=== PATIENT | female | born 1990 | race Caucasian/White ===

== ENCOUNTER 2016-12-07 11:22 | Emergency (ER) | payer OTHER ==
[2016-12-07 11:46] VITALS: RESP 16
[2016-12-07] MEDS ORDERED: SODIUM CHLORIDE 0.9% 1,000 ML IV STA (12:17)
[2016-12-07] MEDS ORDERED: diphenhydrAMINE 50 MG/ML 1 ML VIAL IVP STA (12:17)
[2016-12-07] MEDS ORDERED: METOCLOPRAMIDE 5 MG/ML 2 ML VIAL IVP STA (12:17)
[2016-12-07] MEDS ORDERED: ACETAMINOPHEN IV (For NPO) 1,000 MG in EMPTY BAG 1 BAG IVPB STA (12:26)
[2016-12-07] MEDS ORDERED: KETOROLAC 30 MG/ML 1 ML VIAL IVP STA (12:26)
--- NOTE | 2016-12-07 12:46 | ED ---
General Adult HPI - General Chief complaint: Headache Stated complaint: headache Time Seen by Provider: 12/07/16 11:46 Source: patient, RN notes reviewed, old records reviewed Mode of arrival: ambulatory Limitations: no limitations - History of Present Illness Initial comments: This is a 26-year-old female ER for evaluation of headache. Patient has no history of migraine no head trauma no history of headaches. No diagnosis of headaches, patient has had on and off headache for about 7 days. No nausea vomiting, headache is throbbing in nature left-sided worse with side are sound. No modifying factors, Motrin and Tylenol not helping. Again no fevers, no trauma, no neurological complaints - Related Data Home Medications Medication Instructions Recorded Confirmed Acetaminophen Tab [Tylenol Tab] 1,000 mg PO Q6HR PRN 12/07/16 12/07/16 Aspirin/Acetaminophen/Caffeine 2 tab PO Q24H PRN 12/07/16 12/07/16 [Excedrin Migraine Caplet] Ibuprofen [Motrin] 400 mg PO Q6HR PRN 12/07/16 12/07/16 Previous Rx's Medication Instructions Recorded Ciprofloxacin HCl [Cipro] 500 mg PO Q12HR #10 tablet 12/07/16 Allergies Allergy/AdvReac Type Severity Reaction Status Date / Time azithromycin [From Zithromax] Allergy Unknown Verified 12/07/16 11:46 Sulfa (Sulfonamide Allergy Unknown Verified 12/07/16 11:46 Antibiotics) nitrofurantoin AdvReac Nausea Verified 12/07/16 11:46 [From Macrobid] nitrofurantoin AdvReac Nausea Verified 12/07/16 11:46 macrocrystalline [From Macrobid] Review of Systems ROS Statement: Those systems with pertinent positive or pertinent negative responses have been documented in the HPI. ROS Other: All systems not noted in ROS Statement are negative. Past Medical History Past Medical History: No Reported History History of Any Multi-Drug Resistant Organisms: MRSA Date of last positivie culture/infection: 04/18/11 MDRO Source:: Unknown Past Surgical History: No Surgical Hx Reported Additional Past Surgical History / Comment(s): laprascopy Past Anesthesia/Blood Transfusion Reactions: No Reported Reaction Additional Past Anesthesia/Blood Transfusion Reaction / Comment(s): NO BLOOD TRANSFUSIONS IN PAST Past Psychological History: No Psychological Hx Reported Smoking Status: Current every day smoker Past Alcohol Use History: None Reported Past Drug Use History: None Reported - Past Family History Father Family Medical History: No Reported History Mother Family Medical History: No Reported History Additional Family Medical History / Comment(s): dad no history General Exam Limitations: no limitations General appearance: alert, in no apparent distress Head exam: Present: atraumatic, normocephalic, normal inspection Eye exam: Present: normal appearance, PERRL, EOMI. Absent: scleral icterus, conjunctival injection, periorbital swelling ENT exam: Present: normal exam, mucous membranes moist Neck exam: Present: normal inspection. Absent: tenderness, meningismus, lymphadenopathy Respiratory exam: Present: normal lung sounds bilaterally. Absent: respiratory distress, wheezes, rales, rhonchi, stridor Cardiovascular Exam: Present: regular rate, normal rhythm, normal heart sounds. Absent: systolic murmur, diastolic murmur, rubs, gallop, clicks GI/Abdominal exam: Present: soft, normal bowel sounds. Absent: distended, tenderness, guarding, rebound, rigid Extremities exam: Present: normal inspection, full ROM, normal capillary refill. Absent: tenderness, pedal edema, joint swelling, calf tenderness Back exam: Present: normal inspection Neurological exam: Present: alert, oriented X3, CN II-XII intact Psychiatric exam: Present: normal affect, normal mood Skin exam: Present: warm, dry, intact, normal color. Absent: rash Course Vital Signs 12/07/16 11:43 Temperature 98.3 F Pulse Rate 90 Respiratory 16 Rate Blood Pressure 125/64 O2 Sat by Pulse 100 Oximetry - Reevaluation(s) Reevaluation #1: 12/07/16 13:31 At this time patient's headache is resolved coming from positive urinary tract infection, okay for discharge to Medical Decision Making - Medical Decision Making Twentysomething out of the ER for evaluation of headache, migrainous headache in nature, patient headache is treated here in the emergency room and resolved, CT is negative, lab work is normal aside from urinary tract infection, will treat infection and patient can be discharged home - Lab Data Result diagrams: 12/07/16 12:47 Lab Results 12/07/16 12/07/16 12/07/16 Range/Units 12:47 12:47 12:47 WBC 9.3 (3.8-10.6) k/uL RBC 4.81 (3.80-5.40) m/uL Hgb 15.4 (11.4-16.0) gm/dL Hct 45.9 (34.0-46.0) % MCV 95.4 (80.0-100.0) fL MCH 32.0 (25.0-35.0) pg MCHC 33.5 (31.0-37.0) g/dL RDW 12.6 (11.5-15.5) % Plt Count 323 (150-450) k/uL Neutrophils % 64 % Lymphocytes % 27 % Monocytes % 4 % Eosinophils % 3 % Basophils % 1 % Neutrophils # 5.9 (1.3-7.7) k/uL Lymphocytes # 2.5 (1.0-4.8) k/uL Monocytes # 0.3 (0-1.0) k/uL Eosinophils # 0.3 (0-0.7) k/uL Basophils # 0.1 (0-0.2) k/uL Urine Color Yellow Urine Appearance Cloudy H (Clear) Urine pH 6.0 (5.0-8.0) Ur Specific [place] 1.015 (1.001-1.035) Urine Protein Trace H (Negative) Urine Glucose (UA) Negative (Negative) Urine Ketones Negative (Negative) Urine Blood Trace H (Negative) Urine Nitrite Negative (Negative) Urine Bilirubin Negative (Negative) Urine Urobilinogen <2.0 (<2.0) mg/dL Ur Leukocyte Esterase Moderate H (Negative) Urine RBC 2 (0-5) /hpf Urine WBC 62 H (0-5) /hpf Ur Squamous Epith Cells 1 (0-4) /hpf Urine Bacteria Rare H (None) /hpf Urine Mucus Occasional H (None) /hpf Urine HCG, Qual Not Detected (Not Detectd) - Radiology Data Radiology results: report reviewed (CT brain is negative for acute disease), image reviewed Disposition Clinical Impression: Migraine, UTI (urinary tract infection) Disposition: HOME SELF-CARE Condition: Good Instructions: Acute Headache (ED), Urinary Tract Infection in Women (ED) Prescriptions: Ciprofloxacin HCl [Cipro] 500 mg PO Q12HR #10 tablet Referrals: Lisha Tejeda MD [Primary Care Provider] - 1-2 days
[2016-12-07 13:01] LABS: Basophils # (A) 0.1 k/uL (0-0.2); Basophils % (A) 1 %; CH 31.7; CHCM 33.3; Eosinophils # (A) 0.3 k/uL (0-0.7); Eosinophils % (A) 3 %; HCT 45.9 % (34.0-46.0); HDW 2.31; HGB 15.4 gm/dL (11.4-16.0); Luc # (Auto) 0.16; Luc % (Auto) 2; Lymphocytes # (A) 2.5 k/uL (1.0-4.8); Lymphocytes % (A) 27 %; MCHC 33.5 g/dL (31.0-37.0); MCV 95.4 fL (80.0-100.0); Mean Platelet Volume 7.6; Monocytes # (A) 0.3 k/uL (0-1.0); Monocytes % (A) 4 %; Neutrophils # (A) 5.9 k/uL (1.3-7.7); Neutrophils % (A) 64 %; RBC 4.81 m/uL (3.80-5.40); RDW 12.6 % (11.5-15.5); WBC 9.3 k/uL (3.8-10.6); WBC (Perox) 9.37
[2016-12-07 13:06] LABS: Appearance,Urine Cloudy (Clear); Bacteria,Urine Rare /hpf; Bilirubin,Urine Negative (Negative); Glucose,Urine (UA) Negative (Negative); Ketones,Urine Negative (Negative); Leukocyte Esterase,Urine Moderate (Negative); Mucus,Urine Occasional /hpf; Nitrite,Urine Negative (Negative); Particle Count 4357; Protein,Urine Trace (Negative); RBC,Urine 2 /hpf (0-5); Specific Gravity,Urine 1.015 (1.001-1.035); Squamous Epithelial Cell,Urine 1 /hpf (0-4); UA Billing (MACRO vs. MICRO) MICRO; Urobilinogen,Urine <2.0 mg/dL (<2.0); WBC,Urine 62 /hpf (0-5)
[2016-12-07 13:16] LABS: Chloride 108 mmol/L (98-107); Glucose 105 mg/dL (74-99); Potassium 4.1 mmol/L (3.5-5.1); Total Protein 8.2 g/dL (6.3-8.2)
[2016-12-07 13:17] LABS: ALT 28 U/L (9-52); AST 20 U/L (14-36); Alkaline Phosphatase 65 U/L (38-126); Anion Gap 13 mmol/L; Blood Urea Nitrogen 8 mg/dL (7-17); Calcium 9.8 mg/dL (8.4-10.2); Carbon Dioxide 23 mmol/L (22-30); Magnesium 2.1 mg/dL (1.6-2.3); Non-African American GFR(MDRD) >60 (>60 ml/min/1.73 sqM); Phosphorous 3.8 mg/dL (2.5-4.5); Sodium 144 mmol/L (137-145); Total Bilirubin 0.7 mg/dL (0.2-1.3)
[2016-12-07] MEDS ORDERED: CIPROFLOXACIN HCL 500 MG TAB PO STA (13:30)
--- NOTE | 2016-12-07 13:45 | CT ---
EXAMINATION TYPE: CT brain wo con DATE OF EXAM: 12/07/2016 1:37 PM COMPARISON: NONE HISTORY: 26-year-old female with headaches for 3 weeks TECHNIQUE: Examination was done in axial plane without intravenous contrast. Coronal and sagittal r econstructions performed. CT DLP: 1058 mGycm Automated exposure control for dose reduction was used. FINDINGS: There is no evidence of acute intracranial hemorrhage, acute ischemic changes, mass, mass-effect, or extra-axial fluid collection. There is no effacement of cerebral sulci or basal subarachnoid cister ns. There is no hydrocephalus. There is no midline shift. Berman-white matter distinction is preserv ed. Rightward nasal septal deviation. Paranasal sinuses and mastoid air cells are well pneumatized. Orbit s and globes are intact. IMPRESSION: No acute intracranial abnormality seen.
[2016-12-07 13:53] VITALS: BP 106/69; PULSE 72; TEMP 98.8
== END 2016-12-07 14:00 | disposition home or self-care (01) ==
LOC: EC 11:22
DX: G43.909 Migraine, unspecified, not intractable, without status migrainosus (principal); N39.0 Urinary tract infection, site not specified; F17.200 Nicotine dependence, unspecified, uncomplicated; Z88.0 Allergy status to penicillin; Z88.2 Allergy status to sulfonamides; Z88.8 Allergy status to other drugs, medicaments and biological substances
CPT/HCPCS: 36415; 80053; 83735; 84100; 85025; 81001; 81025; 87086; 87077; 87186; 70450; 99284; 96365; 96375 ×4; J1200; J2765; J2930; J1885; J0131

== ENCOUNTER 2016-12-10 14:58 | Emergency (ER) | payer OTHER ==
[2016-12-10] MEDS ORDERED: PROMETHAZINE INJ 25 MG in SODIUM CHLORIDE 0.9% 50 ML IVPB STA (15:15)
[2016-12-10] MEDS ORDERED: diphenhydrAMINE 50 MG/ML 1 ML VIAL IVP STA (15:15)
[2016-12-10] MEDS ORDERED: KETOROLAC 30 MG/ML 1 ML VIAL IVP STA (15:15)
[2016-12-10] MEDS ORDERED: SODIUM CHLORIDE 0.9% 1,000 ML IV ONE (15:15)
[2016-12-10] MEDS ORDERED: DIAZEPAM 5 MG/ML 2 ML SYRINGE IVP STA (15:26)
--- NOTE | 2016-12-10 15:31 | ED ---
General Adult HPI - General Chief complaint: Headache Stated complaint: migraine Time Seen by Provider: 12/10/16 15:12 Source: patient, family, RN notes reviewed, old records reviewed Mode of arrival: ambulatory Limitations: no limitations - History of Present Illness Initial comments: 26-year-old female presenting for headache. Patient states that she has had headache intermittently for the past month. She states she was treated in the this previous Tuesday for similar symptoms. She states she had a workup at that time which was unremarkable and her headache was feeling improved at that time. She states that since Tuesday she has had persistence of her headache intermittently but worse today again. She states she has been taking Aleve and Excedrin and Benadryl with mild improvement of her headache. She states that she now feels some tension in her left neck muscles as well. She denies any fevers or chills. She denies any visual changes or neurological deficits. She denies any significant medical history. He denies syncope. - Related Data Home Medications Medication Instructions Recorded Confirmed Acetaminophen Tab [Tylenol Tab] 1,000 mg PO Q6HR PRN 12/07/16 12/10/16 Aspirin/Acetaminophen/Caffeine 2 tab PO Q24H PRN 12/07/16 12/10/16 [Excedrin Migraine Caplet] Ibuprofen [Motrin] 400 mg PO Q6HR PRN 12/07/16 12/10/16 Medroxyprogesterone Acetate 150 mg IM Q84D 12/10/16 12/10/16 [Depo-Provera] Previous Rx's Medication Instructions Recorded Ciprofloxacin HCl [Cipro] 500 mg PO Q12HR #10 tablet 12/07/16 Diazepam [Valium] 5 mg PO BID PRN #8 tab 12/10/16 Allergies Allergy/AdvReac Type Severity Reaction Status Date / Time azithromycin [From Zithromax] Allergy Unknown Verified 12/10/16 15:52 Sulfa (Sulfonamide Allergy Unknown Verified 12/10/16 15:52 Antibiotics) nitrofurantoin AdvReac Nausea Verified 12/10/16 15:52 [From Macrobid] nitrofurantoin AdvReac Nausea Verified 12/10/16 15:52 macrocrystalline [From Macrobid] Review of Systems ROS Statement: Those systems with pertinent positive or pertinent negative responses have been documented in the HPI. ROS Other: All systems not noted in ROS Statement are negative. Past Medical History Past Medical History: No Reported History History of Any Multi-Drug Resistant Organisms: MRSA Date of last positivie culture/infection: 04/18/11 MDRO Source:: Unknown Past Surgical History: No Surgical Hx Reported Additional Past Surgical History / Comment(s): laprascopy Past Anesthesia/Blood Transfusion Reactions: No Reported Reaction Additional Past Anesthesia/Blood Transfusion Reaction / Comment(s): NO BLOOD TRANSFUSIONS IN PAST Past Psychological History: No Psychological Hx Reported Smoking Status: Current every day smoker Past Alcohol Use History: None Reported Past Drug Use History: None Reported - Past Family History Father Family Medical History: No Reported History Mother Family Medical History: No Reported History Additional Family Medical History / Comment(s): dad no history General Exam - General Exam Comments Initial Comments: General: Awake and Alert. No acute distress. Does not appear acutely ill. Eyes: BETI, EOM intact. No nystagmus. No scleral icterus. HENT: Atraumatic, normocephalic. Mucous membranes moist. Trachea midline. Neck: The neck is supple, there is no JVD. Mild tenderness and spams of left trapezius. No torticollis. Cardiovascular: Regular rate and rhythm. No murmur, rub, or gallop is appreciated. Distal pulses intact. Respiratory: Lungs are clear to auscultation bilaterally. No wheezes, rales, rhonchi. No respiratory distress. Gastrointestinal: Soft, Nontender. No rebound or guarding. Non-distended. No masses or organomegaly noted. No CVA tenderness. Musculoskeletal: No tenderness. Normal ROM. No gross deformity. No strength deficits. Neurological: A&Ox3. CN II-XII grossly intact, There are no obvious motor or sensory deficits. Coordination appears grossly intact. Speech is normal. Normal gait. Skin: Skin is warm and dry and no rashes or lesions are noted. Psychiatric: Cooperative, appropriate mood & affect, normal judgment. Limitations: no limitations Course Vital Signs 12/10/16 15:00 Temperature 98.2 F Pulse Rate 74 Respiratory 17 Rate Blood Pressure 134/69 O2 Sat by Pulse 100 Oximetry Medical Decision Making - Medical Decision Making 26-year-old female presenting for intermittent headache for the past month. He is recently seen in the for similar symptoms and treated and felt improved at that time. On exam today she has no neurological deficits and a normal gait. She denies any significant medical history. Her headache appears consistent with migraine versus tension headache. There is low suspicion of meningitis or other severe intracranial process at this time. No visual changes or eye pain concerning for intracranial hypertension. Per review of her recent EC visit she had lab work and CT imaging which were unremarkable. She was noted to have a UTI that time and has been on Cipro. Repeat basic lab work was performed without evidence of leukocytosis, BMP stable. UA shows resolution of UTI. is negative. Patient given medications for headache and states significant improvement on reevaluation. Rx for Valium and discussed using Aleve and/or Benadryl as needed for headache. She states she does have scheduled follow up with her doctor next Tuesday. Discussed keeping this appointment and discussing possible referral to neurology if her headaches persist. Discussed concerning signs symptoms for immediate return to the ED. Patient is agreeable with plan and discharge home. - Lab Data Result diagrams: 12/10/16 15:05 12/10/16 15:05 Lab Results 12/10/16 12/10/16 12/10/16 Range/Units 15:05 15:05 15:05 WBC 10.4 (3.8-10.6) k/uL RBC 3.98 (3.80-5.40) m/uL Hgb 12.7 (11.4-16.0) gm/dL Hct 37.7 (34.0-46.0) % MCV 94.7 (80.0-100.0) fL MCH 32.1 (25.0-35.0) pg MCHC 33.9 (31.0-37.0) g/dL RDW 12.8 (11.5-15.5) % Plt Count 280 (150-450) k/uL Neutrophils % 56 % Lymphocytes % 34 % Monocytes % 4 % Eosinophils % 4 % Basophils % 1 % Neutrophils # 5.8 (1.3-7.7) k/uL Lymphocytes # 3.5 (1.0-4.8) k/uL Monocytes # 0.4 (0-1.0) k/uL Eosinophils # 0.4 (0-0.7) k/uL Basophils # 0.1 (0-0.2) k/uL Sodium 143 (137-145) mmol/L Potassium 4.2 (3.5-5.1) mmol/L Chloride 109 H (98-107) mmol/L Carbon Dioxide 21 L (22-30) mmol/L Anion Gap 13 mmol/L BUN 11 (7-17) mg/dL Creatinine 0.64 (0.52-1.04) mg/dL Est GFR (MDRD) Af Amer >60 (>60 ml/min/1.73 sqM) Est GFR (MDRD) Non-Af >60 (>60 ml/min/1.73 sqM) Glucose 86 (74-99) mg/dL Calcium 9.3 (8.4-10.2) mg/dL Urine Color Urine Appearance (Clear) Urine pH (5.0-8.0) Ur Specific [place] (1.001-1.035) Urine Protein (Negative) Urine Glucose (UA) (Negative) Urine Ketones (Negative) Urine Blood (Negative) Urine Nitrite (Negative) Urine Bilirubin (Negative) Urine Urobilinogen (<2.0) mg/dL Ur Leukocyte Esterase (Negative) Urine WBC (0-5) /hpf Ur Squamous Epith Cells (0-4) /hpf Urine HCG, Qual Not Detected (Not Detectd) 12/10/16 Range/Units 15:05 WBC (3.8-10.6) k/uL RBC (3.80-5.40) m/uL Hgb (11.4-16.0) gm/dL Hct (34.0-46.0) % MCV (80.0-100.0) fL MCH (25.0-35.0) pg MCHC (31.0-37.0) g/dL RDW (11.5-15.5) % Plt Count (150-450) k/uL Neutrophils % % Lymphocytes % % Monocytes % % Eosinophils % % Basophils % % Neutrophils # (1.3-7.7) k/uL Lymphocytes # (1.0-4.8) k/uL Monocytes # (0-1.0) k/uL Eosinophils # (0-0.7) k/uL Basophils # (0-0.2) k/uL Sodium (137-145) mmol/L Potassium (3.5-5.1) mmol/L Chloride (98-107) mmol/L Carbon Dioxide (22-30) mmol/L Anion Gap mmol/L BUN (7-17) mg/dL Creatinine (0.52-1.04) mg/dL Est GFR (MDRD) Af Amer (>60 ml/min/1.73 sqM) Est GFR (MDRD) Non-Af (>60 ml/min/1.73 sqM) Glucose (74-99) mg/dL Calcium (8.4-10.2) mg/dL Urine Color Colorless Urine Appearance Clear (Clear) Urine pH 7.0 (5.0-8.0) Ur Specific [place] 1.003 (1.001-1.035) Urine Protein Negative (Negative) Urine Glucose (UA) Negative (Negative) Urine Ketones Negative (Negative) Urine Blood Moderate H (Negative) Urine Nitrite Negative (Negative) Urine Bilirubin Negative (Negative) Urine Urobilinogen <2.0 (<2.0) mg/dL Ur Leukocyte Esterase Negative (Negative) Urine WBC 1 (0-5) /hpf Ur Squamous Epith Cells <1 (0-4) /hpf Urine HCG, Qual (Not Detectd) - Radiology Data Radiology results: report reviewed Disposition Clinical Impression: Nonintractable headache Disposition: HOME SELF-CARE Condition: Stable Instructions: Acute Headache (ED) Additional Instructions: Please take Aleve and or Benadryl with Valium for headache as discussed. Please follow up with your regular doctor for reevaluation next Tuesday. You may also ask for a referral to a Neurologist if headaches are persisting. Prescriptions: Diazepam [Valium] 5 mg PO BID PRN #8 tab PRN Reason: neck spasm/headache Referrals: Lisha Tejeda MD [Primary Care Provider] - 1-2 days Time of Disposition: 17:07
[2016-12-10 15:53] LABS: Basophils # (A) 0.1 k/uL (0-0.2); Basophils % (A) 1 %; CH 31.7; CHCM 33.7; Eosinophils # (A) 0.4 k/uL (0-0.7); Eosinophils % (A) 4 %; HCT 37.7 % (34.0-46.0); HGB 12.7 gm/dL (11.4-16.0); Luc # (Auto) 0.17; Luc % (Auto) 2; Lymphocytes # (A) 3.5 k/uL (1.0-4.8); Lymphocytes % (A) 34 %; MCH 32.1 pg (25.0-35.0); MCHC 33.9 g/dL (31.0-37.0); MCV 94.7 fL (80.0-100.0); Mean Platelet Volume 7.5; Monocytes # (A) 0.4 k/uL (0-1.0); Monocytes % (A) 4 %; Neutrophils # (A) 5.8 k/uL (1.3-7.7); Neutrophils % (A) 56 %; RBC 3.98 m/uL (3.80-5.40); RDW 12.8 % (11.5-15.5); WBC 10.4 k/uL (3.8-10.6); WBC (Perox) 10.52
[2016-12-10 16:00] LABS: Anion Gap 13 mmol/L; Appearance,Urine Clear (Clear); Bilirubin,Urine Negative (Negative); Blood Urea Nitrogen 11 mg/dL (7-17); Calcium 9.3 mg/dL (8.4-10.2); Carbon Dioxide 21 mmol/L (22-30); Chloride 109 mmol/L (98-107); Glucose 86 mg/dL (74-99); Glucose,Urine (UA) Negative (Negative); Ketones,Urine Negative (Negative); Leukocyte Esterase,Urine Negative (Negative); Nitrite,Urine Negative (Negative); Non-African American GFR(MDRD) >60 (>60 ml/min/1.73 sqM); Particle Count 390; Potassium 4.2 mmol/L (3.5-5.1); Protein,Urine Negative (Negative); Sodium 143 mmol/L (137-145); Specific Gravity,Urine 1.003 (1.001-1.035); Squamous Epithelial Cell,Urine <1 /hpf (0-4); UA Billing (MACRO vs. MICRO) MICRO; Urobilinogen,Urine <2.0 mg/dL (<2.0); WBC,Urine 1 /hpf (0-5)
[2016-12-10 17:15] VITALS: BP 122/67; PULSE 69; RESP 16; TEMP 98
== END 2016-12-10 17:15 | disposition home or self-care (01) ==
LOC: EC 14:58
DX: R51 Headache (principal); F17.200 Nicotine dependence, unspecified, uncomplicated; Z32.02 Encounter for pregnancy test, result negative; Z86.14 Personal history of Methicillin resistant Staphylococcus aureus infection; Z88.2 Allergy status to sulfonamides; Z88.1 Allergy status to other antibiotic agents; Z79.1 Long term (current) use of non-steroidal anti-inflammatories (NSAID); Z79.899 Other long term (current) drug therapy
CPT/HCPCS: 99284 ×2; 96374 ×2; 96375 ×3; 96361 ×2; 36415; 80048; 85025; 81001; 81025; J1200; J3360; J1885

== ENCOUNTER → 2017-01-05 | Outpatient (CLI) | payer OTHER ==
--- NOTE | 2017-01-05 19:42 | MR ---
EXAMINATION TYPE: MR brain/cspine wo DATE OF EXAM: 01/05/2017 6:04 PM COMPARISON: NONE HISTORY: left side neck pain with headaches Multiplanar MultiSpin echo imaging of the cervical spine was performed. Comparison: none C2-C3: No evidence for degenerative disc disease. No disc bulge/herniation or protrusion. No Canal stenosis. Foramina are patent bilaterally. C3-C4: No evidence for degenerative disc disease. No disc bulge/herniation or protrusion. No Canal stenosis. Foramina are patent bilaterally. C4-C5: No evidence for degenerative disc disease. No disc bulge/herniation or protrusion. No Canal stenosis. Foramina are patent bilaterally. C5-C6: No evidence for degenerative disc disease. Minimal posterior disc bulge without herniation or protrusion. No Canal stenosis. Foramina are patent bilaterally. C6-C7: No evidence for degenerative disc disease. Minimal posterior disc bulge without herniation or protrusion. No Canal stenosis. Foramina are patent bilaterally. C7-T1: No evidence for degenerative disc disease. No disc bulge/herniation or protrusion. No Canal stenosis. Foramina are patent bilaterally. Cervical segments are intact. There is normal alignment. Cervical spinal cord is of normal signal. Craniovertebral junction relationships are within normal limits. IMPRESSION: 1. L5 6 and L6 7 disc bulge. Otherwise unremarkable study. EXAMINATION TYPE: MR brain/cspine wo DATE OF EXAM: 01/05/2017 6:04 PM COMPARISON: NONE HISTORY: left side neck pain with headaches Multiplanar and multispin-echo imaging of the brain was performed . The ventricles, basal cisterns and sulci overlying the cerebral convexities are within normal limits. There is no evidence for midline shift or mass effect. Acute intracranial hemorrhage or extra-axial collection is not evident. The brain parenchyma reveals no abnormal increased signal. No acute edema is identified. There is fluid within the right petrous apex. There is also fluid within the right-sided mastoid air cells which may reflect chronic mastoiditis. Left-sided mastoid air cells are well-aerated. Small muc ous retention cyst or polyp right maxillary sinus. IMPRESSION: 1. Suspect chronic right-sided mastoiditis. 2. I cannot exclude petrous apicitis.
--- NOTE | 2017-01-06 09:46 | ECHOF ---
Referral Reason:R51 Headaches,M62.838spasm, R01.1 Cardiac murmMER SYST MEASUREMENTS -------- HEIGHT: 165.1 cm WEIGHT: 55.3 kg BP: IVSd: 0.5 cm (0.6 - 1.1) LVIDd: 4.4 cm (3.9 - 5.3) LVPWd: 0.7 cm (0.6 - 1.1) IVSs: 1.0 cm LVIDs: 2.5 cm LVPWs: 1.6 cm Ao Diam: 2.2 cm (2.0 - 3.7) AV Cusp: 1.6 cm (1.5 - 2.6) LA Diam: 2.4 cm (2.7 - 3.8) MV EXCURSION: 12.755 mm (> 18.000) MV EF SLOPE: 117 mm/s (70 - 150) EPSS: 0.7 cm MV E Garo: 1.35 m/s MV DecT: 210 ms MV A Garo: 0.41 m/s MV E/A Ratio: 3.32 RAP: 5.00 mmHg RVSP: 13.43 mmHg FINDINGS -------- Sinus rhythm. This was a technically good study. Left ventricular wall thickness is normal. Overall left ventricular systolic function is normal with, an EF between 55 - 60 %. The right ventricle is normal in size and function. The left atrium is normal in size. The right atrium is normal in size. The aortic valve is trileaflet, and appears structurally normal. No aortic stenosis or regurgitation. Mild mitral regurgitation is present. Mild tricuspid regurgitation present. Pulmonic valve appears structurally normal. The aortic root size is normal. The pericardium is normal. CONCLUSIONS -------- 1. Sinus rhythm. 2. Mild tricuspid regurgitation present. 3. Pulmonic valve appears structurally normal. 4. The aortic root size is normal. 5. The pericardium is normal. 6. This was a technically good study. 7. Left ventricular wall thickness is normal. 8. Overall left ventricular systolic function is normal with, an EF between 55 - 60 %. 9. The right ventricle is normal in size and function. 10. The left atrium is normal in size. 11. The right atrium is normal in size. 12. The aortic valve is trileaflet, and appears structurally normal. No aortic stenosis or regurgitation. 13. Mild mitral regurgitation is present. CUSTOMER CONTACT REPRESENTATIVE: Edwin Richmond RDCS
== END | disposition home or self-care (01) ==
LOC: RADECHMAIN 14:47
PROVIDERS: ATTEND Nurse Practitioner Family
DX: I08.1 Rheumatic disorders of both mitral and tricuspid valves (principal); M50.222 Other cervical disc displacement at C5-C6 level; R51 Headache
CPT/HCPCS: 70551; 72141; 93306

== ENCOUNTER 2017-01-11 00:01 | Emergency (ER) | payer OTHER ==
[2017-01-11 00:14] VITALS: TEMP 97.9
[2017-01-11] MEDS ORDERED: SODIUM CHLORIDE 0.9% 1,000 ML IV ONE (00:47)
[2017-01-11] MEDS ORDERED: DIAZEPAM 5 MG/ML 2 ML SYRINGE IVP STA (00:48)
[2017-01-11] MEDS ORDERED: KETOROLAC 30 MG/ML 1 ML VIAL IVP STA (00:48)
[2017-01-11] MEDS ORDERED: diphenhydrAMINE 50 MG/ML 1 ML VIAL IVP STA (00:48)
--- NOTE | 2017-01-11 00:50 | ED ---
Headache HPI - General Chief Complaint: Headache Stated Complaint: Migraine Time Seen by Provider: 01/11/17 00:27 Source: RN notes reviewed Mode of arrival: ambulatory Limitations: no limitations - History of Present Illness Initial Comments: Patient's 26-year-old female presents to the emergency room for evaluation of headache. Patient states she has a history of migraine headaches. Patient states she has been having migraine headaches for the past month and a half. Patient states pain is mostly on the left side of her face and head. Patient states she did have an MRI on 01/05/17 and was told today that she has rmastoiditis. Patient states she was prescribed Fioricet. Patient states she took the Fioricet twice today with no relief of symptoms. Patient states this migraine has lasted her 24 hours. Patient states she is having 7 out of 10 constant headache on the left side of her face. Patient denies ringing in ears. Patient states she is nauseous but denies vomiting. Patient denies dizziness. Patient denies changes in vision. Patient does admit to photophobia and phonophobia. Patient denies neck pain. Patient denies fevers or chills. Patient denies numbness or tingling in her fingers and toes. Patient denies any extremity weakness. - Related Data Home Medications Medication Instructions Recorded Confirmed Acetaminophen Tab [Tylenol Tab] 1,000 mg PO Q6HR PRN 12/07/16 01/11/17 Aspirin/Acetaminophen/Caffeine 2 tab PO Q24H PRN 12/07/16 01/11/17 [Excedrin Migraine Caplet] Ibuprofen [Motrin] 400 mg PO Q6HR PRN 12/07/16 01/11/17 Medroxyprogesterone Acetate 150 mg IM Q84D 12/10/16 01/11/17 [Depo-Provera] Albuterol Nebulized [Ventolin 2.5 mg INHALATION Q4H PRN 01/11/17 01/11/17 Nebulized] Butalb/APAP/Caff 50-325-40Mg 1 tab PO Q4H PRN 01/11/17 01/11/17 [Fioricet 50-325-40] Previous Rx's Medication Instructions Recorded Diazepam [Valium] 5 mg PO BID PRN #8 tab 12/10/16 Allergies Allergy/AdvReac Type Severity Reaction Status Date / Time azithromycin [From Zithromax] Allergy Unknown Verified 01/11/17 00:14 Sulfa (Sulfonamide Allergy Unknown Verified 01/11/17 00:14 Antibiotics) nitrofurantoin AdvReac Nausea Verified 01/11/17 00:14 [From Macrobid] nitrofurantoin AdvReac Nausea Verified 01/11/17 00:14 macrocrystalline [From Macrobid] Review of Systems ROS Statement: Those systems with pertinent positive or pertinent negative responses have been documented in the HPI. ROS Other: All systems not noted in ROS Statement are negative. Past Medical History Past Medical History: No Reported History Additional Past Medical History / Comment(s): migranes, heart murmur History of Any Multi-Drug Resistant Organisms: MRSA Date of last positivie culture/infection: 04/18/11 MDRO Source:: left buttock Past Surgical History: No Surgical Hx Reported Additional Past Surgical History / Comment(s): abdomin laprascopy Past Anesthesia/Blood Transfusion Reactions: No Reported Reaction Additional Past Anesthesia/Blood Transfusion Reaction / Comment(s): NO BLOOD TRANSFUSIONS IN PAST Past Psychological History: No Psychological Hx Reported Smoking Status: Current every day smoker Past Alcohol Use History: Occasional Past Drug Use History: None Reported - Past Family History Father Family Medical History: No Reported History Mother Family Medical History: No Reported History Additional Family Medical History / Comment(s): dad no history General Exam - General Exam Comments Initial Comments: Sitting in exam room, no distress. Limitations: no limitations General appearance: alert, in no apparent distress Head exam: Present: atraumatic, normocephalic, normal inspection Eye exam: Present: normal appearance, PERRL, EOMI Pupils: Present: normal accommodation ENT exam: Present: normal exam, normal oropharynx, TM's normal bilaterally, normal external ear exam Neck exam: Present: normal inspection, full ROM. Absent: tenderness, lymphadenopathy Respiratory exam: Present: normal lung sounds bilaterally. Absent: respiratory distress Cardiovascular Exam: Present: regular rate, normal rhythm, normal heart sounds Extremities exam: Present: normal inspection Back exam: Present: normal inspection Neurological exam: Present: alert, oriented X3, CN II-XII intact, normal gait Expanded Cranial nerves: EOM's Intact: Normal, Facial Sensation: Normal Sensory exam: Upper Extremity Light Touch: Normal, Lower Extremity Light Touch: Normal Motor strength exam: RUE: 5, LUE: 5, RLE: 5, LLE: 5 Psychiatric exam: Present: normal affect, normal mood Skin exam: Present: warm, dry, intact, normal color. Absent: rash Course Vital Signs 01/11/17 00:08 Temperature 97.9 F Pulse Rate 93 Respiratory 16 Rate Blood Pressure 123/78 O2 Sat by Pulse 100 Oximetry Medical Decision Making - Medical Decision Making Patient is a 26-year-old female presents to the emergency room for evaluation of migraine headache. Patient states her headache has completely resolved with medications given. 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 Patient is having pain on the left side. Advised patient to follow-up with ear, nose and throat specialist for further evaluation. Patient can continue taking Fioricet and ibuprofen at home for headache. Patient states she understands everything that was discussed with her. Return parameters discussed. Case discussed with Dr. Burciaga. - Lab Data Result diagrams: 01/11/17 01:00 01/11/17 01:00 Lab Results 01/11/17 01/11/17 Range/Units 01:00 01:00 WBC 8.3 (3.8-10.6) k/uL RBC 4.17 (3.80-5.40) m/uL Hgb 13.3 (11.4-16.0) gm/dL Hct 40.2 (34.0-46.0) % MCV 96.4 (80.0-100.0) fL MCH 31.9 (25.0-35.0) pg MCHC 33.1 (31.0-37.0) g/dL RDW 13.2 (11.5-15.5) % Plt Count 281 (150-450) k/uL Neutrophils % 48 % Lymphocytes % 42 % Monocytes % 4 % Eosinophils % 4 % Basophils % 1 % Neutrophils # 4.0 (1.3-7.7) k/uL Lymphocytes # 3.5 (1.0-4.8) k/uL Monocytes # 0.3 (0-1.0) k/uL Eosinophils # 0.3 (0-0.7) k/uL Basophils # 0.0 (0-0.2) k/uL Sodium 142 (137-145) mmol/L Potassium 3.9 (3.5-5.1) mmol/L Chloride 111 H (98-107) mmol/L Carbon Dioxide 20 L (22-30) mmol/L Anion Gap 11 mmol/L BUN 8 (7-17) mg/dL Creatinine 0.70 (0.52-1.04) mg/dL Est GFR (MDRD) Af Amer >60 (>60 ml/min/1.73 sqM) Est GFR (MDRD) Non-Af >60 (>60 ml/min/1.73 sqM) Glucose 89 (74-99) mg/dL Calcium 9.4 (8.4-10.2) mg/dL Total Bilirubin 0.5 (0.2-1.3) mg/dL AST 22 (14-36) U/L ALT 25 (9-52) U/L Alkaline Phosphatase 53 (38-126) U/L Total Protein 6.7 (6.3-8.2) g/dL Albumin 4.1 (3.5-5.0) g/dL - Radiology Data Radiology results: report reviewed Disposition Clinical Impression: Headache Disposition: HOME SELF-CARE Condition: Good Instructions: Acute Headache (ED) Additional Instructions: Continue taking at home medications as needed. Drink plenty of water. Please follow up with ear, nose and throat specialist or primary care provider. If any new symptom arises or symptoms worsen, return to ER as soon as possible. Referrals: Lisha Tejeda MD [Primary Care Provider] - 1-2 days Power Bee MD [STAFF PHYSICIAN] - 1-2 days Time of Disposition: 02:02
[2017-01-11 01:21] LABS: Basophils % (A) 1 %; CHCM 33.4; Eosinophils # (A) 0.3 k/uL (0-0.7); Eosinophils % (A) 4 %; HCT 40.2 % (34.0-46.0); HDW 2.17; HGB 13.3 gm/dL (11.4-16.0); Luc # (Auto) 0.15; Luc % (Auto) 2; Lymphocytes # (A) 3.5 k/uL (1.0-4.8); Lymphocytes % (A) 42 %; MCH 31.9 pg (25.0-35.0); MCHC 33.1 g/dL (31.0-37.0); MCV 96.4 fL (80.0-100.0); Mean Platelet Volume 6.7; Monocytes # (A) 0.3 k/uL (0-1.0); Monocytes % (A) 4 %; Neutrophils % (A) 48 %; RBC 4.17 m/uL (3.80-5.40); RDW 13.2 % (11.5-15.5); WBC 8.3 k/uL (3.8-10.6); WBC (Perox) 8.53
[2017-01-11 01:32] LABS: ALT 25 U/L (9-52); AST 22 U/L (14-36); Alkaline Phosphatase 53 U/L (38-126); Anion Gap 11 mmol/L; Blood Urea Nitrogen 8 mg/dL (7-17); Calcium 9.4 mg/dL (8.4-10.2); Carbon Dioxide 20 mmol/L (22-30); Chloride 111 mmol/L (98-107); Glucose 89 mg/dL (74-99); Non-African American GFR(MDRD) >60 (>60 ml/min/1.73 sqM); Potassium 3.9 mmol/L (3.5-5.1); Sodium 142 mmol/L (137-145); Total Bilirubin 0.5 mg/dL (0.2-1.3); Total Protein 6.7 g/dL (6.3-8.2)
[2017-01-11 02:22] VITALS: BP 106/59; PULSE 74; RESP 18
== END 2017-01-11 02:22 | disposition home or self-care (01) ==
LOC: EC 00:01
DX: R51 Headache (principal); R11.0 Nausea; F17.200 Nicotine dependence, unspecified, uncomplicated; Z86.69 Personal history of other diseases of the nervous system and sense organs; Z79.899 Other long term (current) drug therapy; Z88.1 Allergy status to other antibiotic agents; Z88.2 Allergy status to sulfonamides; Z88.8 Allergy status to other drugs, medicaments and biological substances
CPT/HCPCS: 36415; 80053; 85025; 99284; 96374; 96375 ×2; 96361; J1200; J3360; J1885

== ENCOUNTER 2017-03-14 09:12 | Emergency (ER) | payer OTHER ==
[2017-03-14] MEDS ORDERED: METOCLOPRAMIDE 5 MG/ML 2 ML VIAL IVP STA (10:19)
[2017-03-14] MEDS ORDERED: KETOROLAC 30 MG/ML 1 ML VIAL IVP STA (10:19)
[2017-03-14] MEDS ORDERED: SODIUM CHLORIDE 0.9% 1,000 ML IV ONE (10:19)
[2017-03-14] MEDS ORDERED: DIAZEPAM 5 MG/ML 2 ML SYRINGE IVP STA (10:20)
--- NOTE | 2017-03-14 10:23 | ED ---
Headache HPI - General Chief Complaint: Headache Stated Complaint: migraine Time Seen by Provider: 03/14/17 09:59 Source: RN notes reviewed Mode of arrival: ambulatory Limitations: no limitations - History of Present Illness Initial Comments: Patient is a 26-year-old female since emergency room for evaluation of migraine headache. Patient states she has a history of migraine headaches. Patient states her migraine headaches are caused from an irritated nerve on the left side of her neck. Patient states she was told a few months ago that she had an irritated nerve in her left head of her neck. Patient states that she went to the ear, nose and throat specialist was given a cortisone injection in January. Patient states the pain had subsided but is starting to come back. Patient states she can't get an appointment with her ear, nose and throat specialist for another few weeks. Patient states the pain started to come back and is causing to give her migraines similar to before. Patient states she is nauseous but denies vomiting. Patient denies paresthesias. Patient denies any neck stiffness. Patient denies dizziness. Patient denies fevers or chills. - Related Data Home Medications Medication Instructions Recorded Confirmed Medroxyprogesterone Acetate 150 mg IM Q84D 12/10/16 03/14/17 [Depo-Provera] Butalb/APAP/Caff 50-325-40Mg 1 tab PO ONCE 01/11/17 03/14/17 [Fioricet 50-325-40] Cholecalciferol [Vitamin D3] 5,000 unit PO DAILY 03/14/17 03/14/17 Ibuprofen [Motrin] 800 mg PO DAILY PRN 03/14/17 03/14/17 Previous Rx's Medication Instructions Recorded Diazepam [Valium] 5 mg PO BID PRN #10 tab 03/14/17 Allergies Allergy/AdvReac Type Severity Reaction Status Date / Time azithromycin [From Zithromax] Allergy Unknown Verified 03/14/17 10:02 Sulfa (Sulfonamide Allergy Unknown Verified 03/14/17 10:02 Antibiotics) nitrofurantoin AdvReac Nausea Verified 03/14/17 10:02 [From Macrobid] nitrofurantoin AdvReac Nausea Verified 03/14/17 10:02 macrocrystalline [From Macrobid] Review of Systems ROS Statement: Those systems with pertinent positive or pertinent negative responses have been documented in the HPI. ROS Other: All systems not noted in ROS Statement are negative. Past Medical History Past Medical History: No Reported History Additional Past Medical History / Comment(s): migrains, heart murmur History of Any Multi-Drug Resistant Organisms: MRSA Date of last positivie culture/infection: 04/18/11 MDRO Source:: left buttock Past Surgical History: No Surgical Hx Reported Additional Past Surgical History / Comment(s): abdomin laprascopy Past Anesthesia/Blood Transfusion Reactions: No Reported Reaction Additional Past Anesthesia/Blood Transfusion Reaction / Comment(s): NO BLOOD TRANSFUSIONS IN PAST Past Psychological History: No Psychological Hx Reported Smoking Status: Current every day smoker Past Alcohol Use History: Occasional Past Drug Use History: None Reported - Past Family History Father Family Medical History: No Reported History Mother Family Medical History: No Reported History Additional Family Medical History / Comment(s): dad no history General Exam - General Exam Comments Initial Comments: Sitting in exam room, no acute distress. Limitations: no limitations General appearance: alert, in no apparent distress Head exam: Present: atraumatic, normocephalic, normal inspection Eye exam: Present: normal appearance, PERRL, EOMI Pupils: Present: normal accommodation ENT exam: Present: normal exam Neck exam: Present: normal inspection, tenderness (Left paraspinal muscle tenderness), full ROM. Absent: lymphadenopathy Respiratory exam: Present: normal lung sounds bilaterally. Absent: respiratory distress Cardiovascular Exam: Present: regular rate, normal rhythm, normal heart sounds Extremities exam: Present: normal inspection Back exam: Present: normal inspection Neurological exam: Present: alert, oriented X3, CN II-XII intact, normal gait Expanded Patient oriented to: Present: person, place, time Speech: Present: fluid speech Cranial nerves: EOM's Intact: Normal, Facial Sensation: Normal Sensory exam: Upper Extremity Light Touch: Normal, Lower Extremity Light Touch: Normal Motor strength exam: RUE: 5, LUE: 5, RLE: 5, LLE: 5 Eye Response: (4) open spontaneously Motor Response: (6) obeys commands Verbal Response: (5) oriented Psychiatric exam: Present: normal affect, normal mood Skin exam: Present: warm, dry, intact, normal color. Absent: rash Course Vital Signs 03/14/17 03/14/17 03/14/17 09:26 10:28 11:57 Temperature 97.8 F 98.1 F Pulse Rate 79 68 64 Respiratory 20 16 16 Rate Blood Pressure 124/60 104/57 112/60 O2 Sat by Pulse 100 100 100 Oximetry 03/14/17 12:10 Temperature 98.1 F Pulse Rate 64 Respiratory 16 Rate Blood Pressure 112/60 O2 Sat by Pulse 100 Oximetry Medical Decision Making - Medical Decision Making Patient is a 26-year-old female presents to the emergency room for evaluation of migraine headache from neck pain. Patient states she is feeling a lot better after medications given. Patient would like to be discharged home. Advised patient to follow-up with either ear, nose and throat specialist or primary care provider. Patient states she understands everything that was discussed with her. Return parameters discussed. Case discussed Dr. Rowland. Disposition Clinical Impression: Headache Disposition: HOME SELF-CARE Condition: Good Instructions: Acute Headache (ED) Additional Instructions: Drink plenty of water. Warm moist heat. Please follow up with primary care provider or ear, nose and throat specialist in 1-2 days. If any new symptom arises or symptoms worsen, return to ER as soon as possible. Prescriptions: Diazepam [Valium] 5 mg PO BID PRN #10 tab PRN Reason: Pain Referrals: Lisha Tejeda MD [Primary Care Provider] - 1-2 days Time of Disposition: 11:50
[2017-03-14 10:50] VITALS: RESP 16
[2017-03-14 11:58] VITALS: BP 112/60; PULSE 64; TEMP 98.1
== END 2017-03-14 12:10 | disposition home or self-care (01) ==
LOC: EC 09:12
DX: R51 Headache (principal); R11.0 Nausea; F17.200 Nicotine dependence, unspecified, uncomplicated; Z86.69 Personal history of other diseases of the nervous system and sense organs; Z88.1 Allergy status to other antibiotic agents; Z88.2 Allergy status to sulfonamides; Z79.899 Other long term (current) drug therapy
CPT/HCPCS: 99283; 96374; 96375 ×2; 96361; J2765; J3360; J1885

== ENCOUNTER 2017-07-31 18:56 | Emergency (ER) | payer OTHER ==
[2017-07-31] MEDS ORDERED: HYDROmorphone 0.5 MG/0.5 ML SYRINGE IVP STA (20:03)
[2017-07-31] MEDS ORDERED: ONDANSETRON 4 MG/2 ML VIAL IVP STA (20:03)
[2017-07-31] MEDS ORDERED: SODIUM CHLORIDE 0.9% 500 ML IV STA (20:03)
[2017-07-31] MEDS ORDERED: ACETAMINOPHEN TAB 500 MG TAB PO STA (20:04)
[2017-07-31] MEDS ORDERED: IBUPROFEN ORAL SUSP 100 MG/5 ML CUP PO ONE (20:04)
[2017-07-31] MEDS ORDERED: RX INFO: IV CONTRAST WAS GIVEN 1 EACH MISC MISCELLANE PRN (20:08)
--- NOTE | 2017-07-31 20:16 | ED ---
General Adult HPI - General Chief complaint: Abdominal Pain Stated complaint: Side Pain/Abd Pain Time Seen by Provider: 07/31/17 19:25 Source: patient, RN notes reviewed Mode of arrival: ambulatory Limitations: no limitations - History of Present Illness Initial comments: This is a 27-year-old female who presents to the emergency department complaining of left-sided abdominal pain that started this morning and woke her up. Patient states the pain is in a specific area in the left side just lateral to the umbilicus. Patient states she's had no nausea vomiting or diarrhea. Patient states she's not had pain like this before. Patient denies any back pain. Patient does feel chilled but she hasn't taken her temperature. Patient denies any cough patient denies any chest pain he denies any palpitations. - Related Data Home Medications Medication Instructions Recorded Confirmed Medroxyprogesterone Acetate 150 mg IM Q84D 12/10/16 07/31/17 [Depo-Provera] Acetaminophen [Tylenol Extra 1,000 mg PO BID PRN 07/31/17 07/31/17 Strength] Ibuprofen [Motrin] 800 mg PO BID PRN 07/31/17 07/31/17 Oxybutynin Chloride [Ditropan XL] 10 mg PO DAILY 07/31/17 07/31/17 Previous Rx's Medication Instructions Recorded Levofloxacin [Levaquin] 750 mg PO DAILY #10 tab 07/31/17 Allergies Allergy/AdvReac Type Severity Reaction Status Date / Time azithromycin [From Zithromax] Allergy Unknown Verified 07/31/17 19:44 Sulfa (Sulfonamide Allergy Unknown Verified 07/31/17 19:44 Antibiotics) nitrofurantoin AdvReac Nausea Verified 07/31/17 19:44 [From Macrobid] nitrofurantoin AdvReac Nausea Verified 07/31/17 19:44 macrocrystalline [From Macrobid] Review of Systems ROS Statement: Those systems with pertinent positive or pertinent negative responses have been documented in the HPI. ROS Other: All systems not noted in ROS Statement are negative. Past Medical History Past Medical History: No Reported History Additional Past Medical History / Comment(s): migrains, heart murmur History of Any Multi-Drug Resistant Organisms: MRSA Date of last positivie culture/infection: 04/18/11 MDRO Source:: left buttock Past Surgical History: No Surgical Hx Reported Additional Past Surgical History / Comment(s): abdomin laprascopy Past Anesthesia/Blood Transfusion Reactions: No Reported Reaction Additional Past Anesthesia/Blood Transfusion Reaction / Comment(s): NO BLOOD TRANSFUSIONS IN PAST Past Psychological History: No Psychological Hx Reported Smoking Status: Current every day smoker Past Alcohol Use History: Occasional Past Drug Use History: None Reported - Past Family History Father Family Medical History: No Reported History Mother Family Medical History: No Reported History Additional Family Medical History / Comment(s): dad no history General Exam - General Exam Comments Initial Comments: GENERAL: Patient is well-developed and well-nourished. Patient is nontoxic and well- hydrated and is in moderate distress. ENT: Neck is soft and supple. No significant lymphadenopathy is noted. Oropharynx is clear. Moist mucous membranes. Neck has full range of motion without eliciting any pain. EYES: The sclera were anicteric and conjunctiva were pink and moist. Extraocular movements were intact and pupils were equal round and reactive to light. Eyelids were unremarkable. PULMONARY: Unlabored respirations. Good breath sounds bilaterally. No audible rales rhonchi or wheezing was noted. CARDIOVASCULAR: There is a regular rate and rhythm without any murmurs gallops or rubs. ABDOMEN: Patient has some mild in the suprapubic region on the left.. No rebound or guarding. No palpable organomegaly was noted. There is no palpable pulsatile mass. SKIN: Skin is clear with no lesions or rashes and otherwise unremarkable. NEUROLOGIC: Patient is alert and oriented x3. Cranial nerves II through XII are grossly intact. Motor and sensory are also intact. Normal speech, volume and content. Symmetrical smile. MUSCULOSKELETAL: Normal extremities with adequate strength and full range of motion. No lower extremity swelling or edema. No calf tenderness. LYMPHATICS: No significant lymphadenopathy is noted PSYCHIATRIC: Normal psychiatric evaluation. Normal interpersonal interactions appears functionally intact in deals appropriately with others. No signs of depression. No signs of anxiety. . Limitations: no limitations Course Vital Signs 07/31/17 07/31/17 19:22 21:29 Temperature 100.0 F H 99.1 F Pulse Rate 111 H 91 Respiratory 18 16 Rate Blood Pressure 120/57 108/55 O2 Sat by Pulse 100 98 Oximetry Medical Decision Making - Medical Decision Making CT of the abdomen shows no acute abnormalities. Patient received Levaquin in the emergency department for urinary tract infection. Patient states she has gotten quite a few urinary tract infections in the past. - Lab Data Result diagrams: 07/31/17 20:20 07/31/17 20:20 Lab Results 07/31/17 07/31/17 07/31/17 Range/Units 20:20 20:20 20:20 WBC 15.0 H (3.8-10.6) k/uL RBC 4.42 (3.80-5.40) m/uL Hgb 13.5 (11.4-16.0) gm/dL Hct 42.2 (34.0-46.0) % MCV 95.5 (80.0-100.0) fL MCH 30.5 (25.0-35.0) pg MCHC 31.9 (31.0-37.0) g/dL RDW 13.3 (11.5-15.5) % Plt Count 298 (150-450) k/uL Neutrophils % 85 % Lymphocytes % 8 % Monocytes % 5 % Eosinophils % 2 % Basophils % 0 % Neutrophils # 12.7 H (1.3-7.7) k/uL Lymphocytes # 1.2 (1.0-4.8) k/uL Monocytes # 0.7 (0-1.0) k/uL Eosinophils # 0.3 (0-0.7) k/uL Basophils # 0.0 (0-0.2) k/uL Sodium 141 (137-145) mmol/L Potassium 4.1 (3.5-5.1) mmol/L Chloride 105 (98-107) mmol/L Carbon Dioxide 25 (22-30) mmol/L Anion Gap 11 mmol/L BUN 10 (7-17) mg/dL Creatinine 0.70 (0.52-1.04) mg/dL Est GFR (MDRD) Af Amer >60 (>60 ml/min/1.73 sqM) Est GFR (MDRD) Non-Af >60 (>60 ml/min/1.73 sqM) Glucose 91 (74-99) mg/dL Plasma Lactic Acid Keivn (0.7-2.0) mmol/L Calcium 10.1 (8.4-10.2) mg/dL Total Bilirubin 0.4 (0.2-1.3) mg/dL AST 21 (14-36) U/L ALT 33 (9-52) U/L Alkaline Phosphatase 73 (38-126) U/L Total Protein 7.9 (6.3-8.2) g/dL Albumin 4.8 (3.5-5.0) g/dL Amylase 32 (30-110) U/L Lipase 43 (23-300) U/L Urine Color Yellow Urine Appearance Cloudy H (Clear) Urine pH 5.5 (5.0-8.0) Ur Specific [place] 1.012 (1.001-1.035) Urine Protein Trace H (Negative) Urine Glucose (UA) Negative (Negative) Urine Ketones Negative (Negative) Urine Blood Negative (Negative) Urine Nitrite Negative (Negative) Urine Bilirubin Negative (Negative) Urine Urobilinogen <2.0 (<2.0) mg/dL Ur Leukocyte Esterase Large H (Negative) Urine RBC 5 (0-5) /hpf Urine WBC 157 H (0-5) /hpf Urine WBC Clumps Few H (None) /hpf Ur Squamous Epith Cells <1 (0-4) /hpf Urine Bacteria Moderate H (None) /hpf Urine Mucus Rare H (None) /hpf Urine HCG, Qual (Not Detectd) 07/31/17 07/31/17 Range/Units 20:20 20:20 WBC (3.8-10.6) k/uL RBC (3.80-5.40) m/uL Hgb (11.4-16.0) gm/dL Hct (34.0-46.0) % MCV (80.0-100.0) fL MCH (25.0-35.0) pg MCHC (31.0-37.0) g/dL RDW (11.5-15.5) % Plt Count (150-450) k/uL Neutrophils % % Lymphocytes % % Monocytes % % Eosinophils % % Basophils % % Neutrophils # (1.3-7.7) k/uL Lymphocytes # (1.0-4.8) k/uL Monocytes # (0-1.0) k/uL Eosinophils # (0-0.7) k/uL Basophils # (0-0.2) k/uL Sodium (137-145) mmol/L Potassium (3.5-5.1) mmol/L Chloride (98-107) mmol/L Carbon Dioxide (22-30) mmol/L Anion Gap mmol/L BUN (7-17) mg/dL Creatinine (0.52-1.04) mg/dL Est GFR (MDRD) Af Amer (>60 ml/min/1.73 sqM) Est GFR (MDRD) Non-Af (>60 ml/min/1.73 sqM) Glucose (74-99) mg/dL Plasma Lactic Acid Kevin 1.1 (0.7-2.0) mmol/L Calcium (8.4-10.2) mg/dL Total Bilirubin (0.2-1.3) mg/dL AST (14-36) U/L ALT (9-52) U/L Alkaline Phosphatase (38-126) U/L Total Protein (6.3-8.2) g/dL Albumin (3.5-5.0) g/dL Amylase (30-110) U/L Lipase (23-300) U/L Urine Color Urine Appearance (Clear) Urine pH (5.0-8.0) Ur Specific [place] (1.001-1.035) Urine Protein (Negative) Urine Glucose (UA) (Negative) Urine Ketones (Negative) Urine Blood (Negative) Urine Nitrite (Negative) Urine Bilirubin (Negative) Urine Urobilinogen (<2.0) mg/dL Ur Leukocyte Esterase (Negative) Urine RBC (0-5) /hpf Urine WBC (0-5) /hpf Urine WBC Clumps (None) /hpf Ur Squamous Epith Cells (0-4) /hpf Urine Bacteria (None) /hpf Urine Mucus (None) /hpf Urine HCG, Qual Not Detected (Not Detectd) Disposition Clinical Impression: Urinary tract infection Disposition: HOME SELF-CARE Condition: Good Instructions: Urinary Tract Infection in Women (ED) Additional Instructions: Patient should return to emergency department for worsening symptoms or any new symptoms. Patient should take the Levaquin as prescribed. Prescriptions: Levofloxacin [Levaquin] 750 mg PO DAILY #10 tab Referrals: Lisha Tejeda MD [Primary Care Provider] - 1-2 days Time of Disposition: 21:49
[2017-07-31] MEDS ORDERED: HYDROmorphone 1 MG/ML 1 ML SYRINGE IM STA (20:23)
[2017-07-31 20:41] LABS: Basophils % (A) 0 %; CHCM 32.6; Eosinophils # (A) 0.3 k/uL (0-0.7); Eosinophils % (A) 2 %; HCT 42.2 % (34.0-46.0); HDW 2.16; HGB 13.5 gm/dL (11.4-16.0); Luc # (Auto) 0.06; Luc % (Auto) 0; Lymphocytes # (A) 1.2 k/uL (1.0-4.8); Lymphocytes % (A) 8 %; MCH 30.5 pg (25.0-35.0); MCHC 31.9 g/dL (31.0-37.0); MCV 95.5 fL (80.0-100.0); Mean Platelet Volume 7.6; Monocytes # (A) 0.7 k/uL (0-1.0); Monocytes % (A) 5 %; Neutrophils # (A) 12.7 k/uL (1.3-7.7); Neutrophils % (A) 85 %; RBC 4.42 m/uL (3.80-5.40); RDW 13.3 % (11.5-15.5); WBC (Perox) 15.18
[2017-07-31 20:48] LABS: Appearance,Urine Cloudy (Clear); Bacteria,Urine Moderate /hpf; Bilirubin,Urine Negative (Negative); Glucose,Urine (UA) Negative (Negative); Ketones,Urine Negative (Negative); Leukocyte Esterase,Urine Large (Negative); Mucus,Urine Rare /hpf; Nitrite,Urine Negative (Negative); PH, Urine 5.5 (5.0-8.0); Particle Count 10313; Protein,Urine Trace (Negative); RBC,Urine 5 /hpf (0-5); Specific Gravity,Urine 1.012 (1.001-1.035); Squamous Epithelial Cell,Urine <1 /hpf (0-4); UA Billing (MACRO vs. MICRO) MICRO; Urobilinogen,Urine <2.0 mg/dL (<2.0); WBC,Urine 157 /hpf (0-5)
[2017-07-31 21:05] LABS: ALT 33 U/L (9-52); AST 21 U/L (14-36); Alkaline Phosphatase 73 U/L (38-126); Amylase 32 U/L (30-110); Anion Gap 11 mmol/L; Blood Urea Nitrogen 10 mg/dL (7-17); Calcium 10.1 mg/dL (8.4-10.2); Carbon Dioxide 25 mmol/L (22-30); Chloride 105 mmol/L (98-107); Glucose 91 mg/dL (74-99); Non-African American GFR(MDRD) >60 (>60 ml/min/1.73 sqM); Potassium 4.1 mmol/L (3.5-5.1); Sodium 141 mmol/L (137-145); Total Bilirubin 0.4 mg/dL (0.2-1.3); Total Protein 7.9 g/dL (6.3-8.2)
[2017-07-31] MEDS ORDERED: LEVOFLOXACIN 750MG-D5W PMX 750 MG in DEXTROSE/WATER 1 150ML.BAG IVPB STA (21:07)
[2017-07-31 21:30] VITALS: PULSE 91; RESP 16
--- NOTE | 2017-07-31 21:46 | CT ---
EXAMINATION TYPE: CT abdomen pelvis w con DATE OF EXAM: 07/31/2017 COMPARISON: NONE INDICATION: Left sided pain with fever DLP: 329 mGycm, Automated exposure control for dose reduction was used. CONTRAST: 100 mL of Omnipaque 300. Study performed without Oral Contrast TECHNIQUE: Axial images were obtained from above the diaphragm to the pubic rami in the axial plane a t 5 mm thick sections. Reconstructed images are reviewed on the computer in the coronal plane. FINDINGS: Limited CT sections are obtained the lung bases. The lung bases are clear. CT ABDOMEN: Liver: There is a 3.3 cm hypodense in the anterior right lobe liver suspicious for a lesion. This are a appears isointense on delayed images suggesting this may be a hemangioma. This could be confirmed w ith dynamic CT or MRI. Remainder the liver appears unremarkable. Spleen: Normal Pancreas: Normal Adrenal glands: The adrenal glands are normal. Gallbladder: Normal Kidneys: No masses are evident. No hydronephrosis is present. There appears to be a cyst in the pos terior superior left kidney measuring approximately 0.6 cm. Delayed images were obtained through the kidneys, which remain unremarkable. Aorta: Normal Inferior vena cava: Normal. CT PELVIS: Umbilical piercing is present. Loops of bowel within the abdomen and pelvis are normal. Studies without oral contrast limiting t he evaluation of loops of bowel. Appendix: Normal as visualized. Urinary bladder: Normal. Genitourinary structures: Uterus and adnexal regions are clear. Osseous structures: No suspicious lytic or sclerotic lesions. IMPRESSIONS: 1. Unremarkable CT abdomen and pelvis.
[2017-07-31] MEDS ORDERED: KETOROLAC 60 MG/2 ML VIAL IVP STA (21:51)
[2017-07-31 23:14] VITALS: BP 111/59; TEMP 98.4
== END 2017-07-31 23:33 | disposition home or self-care (01) ==
LOC: EC 18:56
DX: N39.0 Urinary tract infection, site not specified (principal); F17.200 Nicotine dependence, unspecified, uncomplicated; Z86.14 Personal history of Methicillin resistant Staphylococcus aureus infection; Z79.3 Long term (current) use of hormonal contraceptives; Z79.899 Other long term (current) drug therapy; Z88.1 Allergy status to other antibiotic agents; Z88.2 Allergy status to sulfonamides
CPT/HCPCS: 36415; 80053; 82150; 83605; 83690; 85025; 81001; 81025; 87040; 74177; 99284; 96365; 96366; 96375 ×3; 96361; J2405; J1885; J1956; Q9967; J1170

== ENCOUNTER → 2017-11-07 | Outpatient (CLI) | payer OTHER ==
--- NOTE | 2017-11-07 09:38 | US ---
EXAMINATION TYPE: US kidneys/renal and bladder DATE OF EXAM: 11/07/2017 COMPARISON: CT 07/31/2017 CLINICAL HISTORY: 27-year-old female N28.1 Kidney Cyst; left flank pain; left renal cyst per CT Technique: Multiple sonographic images of the kidneys and bladder are obtained. FINDINGS: Right Kidney: 10.3 x 4.9 x 4.3 cm Left Kidney: 10.1 x 4.7 x 4.6 cm Right Kidney: Mild pelviectasis versus extrarenal pelvis. No calyceal dilatation to suggest hydroneph rosis. Left Kidney: No hydronephrosis. The left renal cyst reported on CT is not identified on the present e xam. Bladder: wnl Bilateral Jets seen: While both jets were seen, the right ureteral jet was very small. Post Void Residual Volume: 18.3 mL, increased but within an acceptable range. IMPRESSION: 1. Extrarenal pelvis versus mild right-sided pelviectasis, probably transient. No calyceal dilatation to suggest hydronephrosis. 2. No focal lesion is identified in the upper pole the left kidney to correspond to the CT finding. C onsider a 6 month follow-up ultrasound to exclude any enlarging lesions. 3. Increased postvoid bladder volume (18.3 mL). However, this still falls within an acceptable range.
== END | disposition home or self-care (01) ==
LOC: RADUSWWP 07:58
PROVIDERS: ATTEND Family Medicine
DX: N28.1 Cyst of kidney, acquired (principal)
CPT/HCPCS: 76770

== ENCOUNTER 2021-12-29 11:21 | Emergency (ER) | payer BC, OTHER ==
[2021-12-29] MEDS ORDERED: methocarbamoL 750 MG TAB PO STA (12:29)
[2021-12-29] MEDS ORDERED: PROCHLORPERAZINE 5 MG TAB PO STA (12:29)
--- NOTE | 2021-12-29 14:11 | CT ---
EXAMINATION TYPE: CT brain cspine wo con DATE OF EXAM: 12/29/2021 COMPARISON: CT dated 12/24/2021 and 12/07/2016 HISTORY: Migraine CT DLP: 1244.2 mGycm Automated exposure control for dose reduction was used. TECHNIQUE: CT scan of the head and cervical spine are performed without contrast. FINDINGS: Brain: Slight cerebellar volume loss changes more than expected for the patient's age, please correlate clin ically. No acute intracranial hemorrhage or gross acute cortical infarct. No midline shift, herniatio n or ventriculomegaly. Unremarkable basal cisterns, sella and CP angles. No gross space-occupying lesion, vasogenic edema or mass effect. Grossly unremarkable orbits. Mucosal thickening of the right maxillary sinus. Opacified right inferior mastoid air cells. No aggressive b one lesion. Cervical spine: Preserved cervical curvature. No significant anterolisthesis or retrolisthesis. No definite vertebral body collapse or acute displaced fracture. Unremarkable atlantoaxial and atlantooccipital articulati ons. No facet dislocation or significant subluxation. No significant bony degenerative changes of the cervical spine. No significant bony central spinal ca nal stenosis or bony neuroforaminal stenosis. No significant cervical disc disease by this CT scan. U nremarkable prevertebral soft tissue. IMPRESSION: 1. No acute intracranial abnormality or gross space-occupying lesion by this nonenhanced CT scan. Sli ght cerebellar volume loss changes, please correlate clinically. 2. No significant cervical spine abnormality identified by this CT scan. Further MRI assessment can be considered if clinically required.
[2021-12-29 15:16] VITALS: BP 138/62; PULSE 102; RESP 16; TEMP 97.8
--- NOTE | 2021-12-29 15:18 | ED ---
Headache HPI - General Chief Complaint: Headache Stated Complaint: Migraine Time Seen by Provider: 12/29/21 12:15 Mode of arrival: ambulatory - History of Present Illness Initial Comments: Patient complains of headache and neck pain. She is getting migraines. Her symptoms are getting worse. She has no nausea or vomiting. She has no change in vision or hearing. She has no focal weakness. She has no lightheadedness or dizziness. She has no paresthesias. She has no trouble walking. Her headaches come on gradually. Currently she is not experiencing the worst headache of her life. - Related Data Home Medications Medication Instructions Recorded Confirmed Medroxyprogesterone Acetate 150 mg IM Q84D 12/10/16 12/29/21 [Depo-Provera] Cyclobenzaprine [Flexeril] 2.5 - 5 mg PO DAILY PRN 12/29/21 12/29/21 Magnesium Oxide 400 mg PO HS 12/29/21 12/29/21 Previous Rx's Medication Instructions Recorded Ibuprofen [Motrin] 800 mg PO Q8H PRN #30 tab 12/29/21 Methocarbamol [Robaxin-750] 1,500 mg PO BID PRN #20 tablet 12/29/21 Allergies Allergy/AdvReac Type Severity Reaction Status Date / Time nitrofurantoin Allergy Rash/Hives Verified 12/29/21 13:42 [From Macrobid] nitrofurantoin Allergy Rash/Hives Verified 12/29/21 13:42 macrocrystalline [From Macrobid] Sulfa (Sulfonamide Allergy Rash/Hives Verified 12/29/21 13:42 Antibiotics) azithromycin [From Zithromax] AdvReac Nausea & Verified 12/29/21 13:42 Vomiting & Diarrhea Review of Systems ROS Statement: Those systems with pertinent positive or pertinent negative responses have been documented in the HPI. ROS Other: All systems not noted in ROS Statement are negative. Past Medical History Past Medical History: No Reported History Additional Past Medical History / Comment(s): migraines, heart murmur History of Any Multi-Drug Resistant Organisms: MRSA Date of last positivie culture/infection: 04/18/11 MDRO Source:: left buttock Past Surgical History: No Surgical Hx Reported Additional Past Surgical History / Comment(s): abdomin laprascopy Past Anesthesia/Blood Transfusion Reactions: No Reported Reaction Additional Past Anesthesia/Blood Transfusion Reaction / Comment(s): NO BLOOD TRANSFUSIONS IN PAST Past Psychological History: No Psychological Hx Reported Smoking Status: Current every day smoker Past Alcohol Use History: Occasional Past Drug Use History: None Reported - Past Family History Father Family Medical History: No Reported History Mother Family Medical History: No Reported History Additional Family Medical History / Comment(s): dad no history General Exam General appearance: alert, in no apparent distress Head exam: Present: atraumatic, normocephalic, normal inspection Eye exam: Present: normal appearance, PERRL, EOMI. Absent: scleral icterus, conjunctival injection, periorbital swelling ENT exam: Present: normal exam, mucous membranes moist Neck exam: Present: normal inspection. Absent: tenderness, meningismus, lymphadenopathy Respiratory exam: Present: normal lung sounds bilaterally. Absent: respiratory distress, wheezes, rales, rhonchi, stridor Cardiovascular Exam: Present: regular rate, normal rhythm, normal heart sounds. Absent: systolic murmur, diastolic murmur, rubs, gallop, clicks GI/Abdominal exam: Present: soft, normal bowel sounds. Absent: distended, tenderness, guarding, rebound, rigid Extremities exam: Present: normal inspection, full ROM, normal capillary refill. Absent: tenderness, pedal edema, joint swelling, calf tenderness Back exam: Present: normal inspection Neurological exam: Present: alert, oriented X3, CN II-XII intact Psychiatric exam: Present: normal affect, normal mood Skin exam: Present: warm, dry, intact, normal color. Absent: rash Course Vital Signs 12/29/21 11:45 Temperature 98.7 F Pulse Rate 96 Respiratory 18 Rate Blood Pressure 110/76 O2 Sat by Pulse 100 Oximetry Medical Decision Making - Medical Decision Making Patient complains of neck pain and migraine headaches. I obtained a CT of the head and cervical spine. There appears to be no acute emergency. She is feeling better after muscle relaxer and some pain medicine. She has no neurological deficits. Her exam is unremarkable. She is stable for discharge. Disposition Clinical Impression: Migraine Disposition: HOME SELF-CARE Condition: Good Instructions (If sedation given, give patient instructions): Acute Headache (E D) Prescriptions: Ibuprofen [Motrin] 800 mg PO Q8H PRN #30 tab PRN Reason: Pain Methocarbamol [Robaxin-750] 1,500 mg PO BID PRN #20 tablet PRN Reason: Pain Is patient prescribed a controlled substance at d/c from ED?: No Referrals: Jazmín Irwin MD [Primary Care Provider] - 1-2 days Jose Ordoñez MD [STAFF PHYSICIAN] - 1-2 days
== END 2021-12-29 15:23 | disposition home or self-care (01) ==
LOC: EC 11:21
DX: G43.909 Migraine, unspecified, not intractable, without status migrainosus (principal); F17.200 Nicotine dependence, unspecified, uncomplicated
CPT/HCPCS: 72125; 70450; 99283; S0183

== ENCOUNTER 2022-09-08 14:51 | Emergency (ER) | payer BC ==
[2022-09-08 15:00] VITALS: RESP 16
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
[2022-09-08 17:01] VITALS: BP 120/79; PULSE 88; TEMP 98.1
== END 2022-09-08 17:33 | disposition home or self-care (01) ==
LOC: EC 14:51
DX: S00.11XA Contusion of right eyelid and periocular area, initial encounter (principal); S09.90XA Unspecified injury of head, initial encounter; F17.200 Nicotine dependence, unspecified, uncomplicated; Z88.1 Allergy status to other antibiotic agents; Z88.2 Allergy status to sulfonamides; V49.40XA Driver injured in collision with unspecified motor vehicles in traffic accident, initial encounter
CPT/HCPCS: 70450; 99284